=== PATIENT | male | born 1960 ===

== ENCOUNTER 2017-07-05 13:14 | Emergency (ER) | payer SELFPAY ==
[2017-07-05 13:21] VITALS: RESP 18; TEMP 98.7
[2017-07-05] MEDS ORDERED: Tetanus/Diphtheria Toxoids 0.5 ml Syringe IM ONE ×2 (13:38→14:50)
[2017-07-05] MEDS ORDERED: Lidocaine 2% Inj (20ml) INFIL ONE (13:38)
--- NOTE | 2017-07-05 13:45 | C.PDOC ---
History Of Present Illness 56 yo male come in for evaluation of Right side forehead laceration sustained [employer] while at work. Otherwise, pt denies LOC, syncope, severe headache, dizziness , visual changes, or any other active complaints. Ambulate to Ed for evaluation , not in any apparent distress. Time Seen by Provider: 07/05/17 13:22 Chief Complaint (Nursing): Abnormal Skin Integrity History Per: Patient Past Medical History Reviewed: Historical Data, Nursing Documentation, Vital Signs Vital Signs: Last Vital Signs Temp 98.7 F 07/05/17 13:18 Pulse 86 07/05/17 13:18 Resp 18 07/05/17 13:18 BP 172/95 H 07/05/17 13:18 Pulse Ox 100 07/05/17 13:46 - Medical History PMH: No Chronic Diseases Surgical History: No Surg Hx Family History: States: No Known Family Hx - Social History Hx Tobacco Use: No Hx Alcohol Use: Yes (social) Hx Substance Use: No - Immunization History Hx Tetanus Toxoid Vaccination: No Hx Influenza Vaccination: No Hx Pneumococcal Vaccination: No Review Of Systems Except As Marked, All Systems Reviewed And Found Negative. Constitutional: Negative for: Fever, Chills Eyes: Negative for: Vision Change, Conjunctivae Inflammation ENT: Negative for: Ear Discharge, Nose Discharge Musculoskeletal: Negative for: Neck Pain Skin: Positive for: Rash Neurological: Negative for: Weakness, Numbness, Altered Mental Status, Headache , Dizziness Physical Exam - Physical Exam Appears: Well, Non-toxic, No Acute Distress Skin: Normal Color, Warm Head: Normacephalic, Laceration (5cm irregular cutaneous laceration to Right side forehead extend down to Right eyebrow, mild bloody oozing, no wound FB, no palpable defomrity.) Eye(s): bilateral: PERRL Ear(s): Bilateral: Normal Nose: No Flaring, No Discharge, No Deformity, No Tenderness Oral Mucosa: Moist, No Drooling Tongue: Normal Appearing Lips: Normal Appearing Neck: Trachea Midline, No Midline Cervical Tenderness, No Paracervical Tenderness, No Step Off Deformity, Supple Extremity: Normal ROM, No Pedal Edema, No Deformity, No Swelling ED Course And Treatment O2 Sat by Pulse Oximetry: 100 Laceration - Laceration Repair Right forehead/Right eyebrow Wound Length (In cm): 5cm Description Of Wound: Irregular Anesthesia: Lidocaine 2% Wound Examination: Irrigated With Saline, No FB With Wound Exploration Wound Closure: Suture (#14) Suture Technique And Material Used: Interrupted, Nylon (5-0), Chromic (5-0#1) Wound Complexity: Intermediate Disposition Counseled Patient/Family Regarding: Diagnosis, Need For Followup, Rx Given - Disposition Referrals: [facility] [Outside] Disposition: HOME/ ROUTINE Disposition Time: 14:37 Condition: STABLE Additional Instructions: Keep wound clean, dry Apply antibiotic cream to wound daily Take medication as prescribed Suture removal in 5-7 days return to ED at any time if any sign of infection- increase pain, redness, wound draining or nay other new changes. Follow up with PMD in 2 days for wound check as need. Prescriptions: Amoxicillin/Clavulanate [Augmentin 875 MG-125 MG] 1 tab PO BID #14 tab Instructions: Laceration Repair With Stitches (DC) Forms: [employer] (Citizen Of [place]) Print Language: INDONESIAN - Clinical Impression Clinical Impression: Laceration
[2017-07-05] MEDS ORDERED: Amoxicillin-Clav 875-125 mg Tab PO STA (14:41)
[2017-07-05] MEDS ORDERED: Amoxicillin-Clav 875-125 mg Tab PO ONE (14:50)
[2017-07-05 14:57] VITALS: BP 140/80; PULSE 71; O2SAT 98
== END 2017-07-05 14:57 | disposition home or self-care (01) ==
LOC: C.ER 13:14
DX: S01.81XA Laceration without foreign body of other part of head, initial encounter (principal); W31.89XA Contact with other specified machinery, initial encounter; Y92.89 Other specified places as the place of occurrence of the external cause; Y99.8 Other external cause status; Z23 Encounter for immunization

== ENCOUNTER 2017-07-13 09:03 | Emergency (ER) | payer SELFPAY ==
[2017-07-13 09:11] VITALS: BP 132/77; PULSE 72; RESP 20; TEMP 97.7; O2SAT 100
--- NOTE | 2017-07-13 09:37 | C.PDOC ---
History Of Present Illness Patient is a 56 y/o male who presents to the ED for suture removal of the right eyebrow that was placed on 07/05. Patient states wound is healing well. Denies any new symptoms at this time. SUTURE REMOVAL R EYEBROW PLACED ON 07/05. PS HEALING WELL, NO NEW SX EXAM NAD SKIN SUTURES IN PLACE R EYEBROW. NO REDNESS, SWELL, TEND. REMAIDNER NEG PROC SUTURES REMOVED W 11 BLADE WO DIFF. PT TOLERATED WELL Time Seen by Provider: 07/13/17 09:31 Chief Complaint (Nursing): Suture/Staple Removal History Per: Patient History/Exam Limitations: no limitations Current Symptoms Are (Timing): Gone Recent travel outside of the [place]: No Past Medical History Reviewed: Historical Data, Nursing Documentation, Vital Signs Vital Signs: Last Vital Signs Temp 97.7 F 07/13/17 09:04 Pulse 72 07/13/17 09:04 Resp 20 07/13/17 09:04 BP 132/77 07/13/17 09:04 Pulse Ox 100 07/13/17 10:16 - Medical History PMH: No Chronic Diseases Surgical History: No Surg Hx Family History: States: No Known Family Hx - Social History Hx Tobacco Use: No Hx Alcohol Use: Yes (social) Hx Substance Use: No - Immunization History Hx Tetanus Toxoid Vaccination: No Hx Influenza Vaccination: No Hx Pneumococcal Vaccination: No Review Of Systems Skin: Positive for: Other (suture removal) Physical Exam - Physical Exam Appears: No Acute Distress Skin: Normal Color, Warm, Dry, Other (skin sutures in place on right eyebrow; negative redness, swelling, or tenderness) Head: Atraumatic, Normacephalic Oral Mucosa: Moist ED Course And Treatment O2 Sat by Pulse Oximetry: 100 Progress Note: Sutures removed without difficulty. Disposition Counseled Patient/Family Regarding: Diagnosis, Need For Followup - Disposition Referrals: YOUR,PMD [Other] Disposition: HOME/ ROUTINE Disposition Time: 10:16 Condition: IMPROVED Instructions: Stitches Removal Forms: [employer] ([place]er) Print Language: GHANAIAN - Clinical Impression Clinical Impression: Removal of suture - Scribe Statement The provider has reviewed the documentation as recorded by the Scribe Talisha Roque All medical record entries made by the Scribe were at my direction and personally dictated by me. I have reviewed the chart and agree that the record accurately reflects my personal performance of the history, physical exam, medical decision making, and the department course for this patient. I have also personally directed, reviewed, and agree with the discharge instructions and disposition. Suture Removal/Wound Check - Time Time: 12:00 - Historian Historian: Patient - Chief Complaints Chief complaint: Suture removal - Notes: Notes:: Sutures removed with 11 blade without difficulty. Patient tolerated procedure well. - Symptoms since last ED visit Symptoms since last ED visit:: None - Radiation Radiation: None - Severity of pain Severity Current: None
== END 2017-07-13 10:19 | disposition home or self-care (01) ==
LOC: C.ER 09:03
DX: Z48.02 Encounter for removal of sutures (principal)